=== PATIENT | female | born 1945 | race Caucasian/White ===

== ENCOUNTER 2016-09-11 11:53 | Day surgery (SDC) | payer MEDICARE ==
--- NOTE | ~2016-09-11 | EGD ---
EGD REPORT [facility] [address] [address] NAME: SUZANNE MORENO : [birth year] STATUS : REG [facility] [place] PAT#: [id number] AGE: 71 ADM/REG DATE : 09/11/16 MR#: [id number] REPORT SERV DATE: 09/11/16 DICTATED BY: KAREN PATEL DATE: 09/11/16 REPORT STATUS : Draft TRANSCRIBED BY: [email or web address] DATE: 09/11/16 Endoscopy Center Patient Name: Suzanne Moreno Date of : 1945 Attending MD: OMAR PATEL MD Procedure Date No Time: 09/11/2016 Procedure: Upper GI endoscopy Indications: Heartburn, Gastro-esophageal reflux disease Referring MD: ANUSHKA FULLER Medicines: See the Anesthesia note for documentation of the administered medications Complications: No immediate complications. Estimated blood loss: Minimal. Procedure: Pre-Anesthesia Assessment: - ASA Grade Assessment: III - A patient with severe systemic disease. - Prior to the procedure, a History and Physical was performed, and patient medications and allergies were reviewed. The patient's tolerance of previous anesthesia was also reviewed. The risks and benefits of the procedure and the sedation options and risks were discussed with the patient. All questions were answered, and informed consent was obtained. Prior Anticoagulants: The patient has taken no previous anticoagulant or antiplatelet agents. After reviewing the risks and benefits, the patient was deemed in satisfactory condition to undergo the procedure. After obtaining informed consent, the endoscope was passed under direct vision. Throughout the procedure, the patient's blood pressure, pulse, and oxygen saturations were monitored continuously. The GIF [id number] was introduced through the mouth, and advanced to the second part of duodenum. The upper GI endoscopy was accomplished without difficulty. The patient tolerated the procedure well. Findings: The examined duodenum was normal. Diffuse moderate inflammation characterized by erythema and granularity was found in the gastric antrum. Biopsies were taken with a cold forceps for histology. No other significant abnormalities were identified in a careful examination of the stomach. The cardia and gastric fundus were normal on retroflexion. Diffuse mild erythema was found at the gastroesophageal junction. This EGD REPORT [address] [address] NAME: SUZANNE MORENO : [birth year] STATUS : REG [facility] [place] PAT#: [id number] AGE: 71 ADM/REG DATE : 09/11/16 MR#: [id number] REPORT SERV DATE: 09/11/16 DICTATED BY: KAREN PATEL DATE: 09/11/16 REPORT STATUS : Draft TRANSCRIBED BY: [email or web address] DATE: 09/11/16 was biopsied with a cold forceps for histology. No other significant abnormalities were identified in a careful examination of the esophagus. Impression: - Normal examined duodenum. - Gastritis. Biopsied. - Erythema at the gastroesophageal junction. Biopsied. Recommendation: - Patient has a contact number available for emergencies. The signs and symptoms of potential delayed complications were discussed with the patient. Return to normal activities tomorrow. Written discharge instructions were provided to the patient. - Regular diet. - Discharge patient to home. - Continue present medications. - Await pathology results. Procedure Code(s): --- Professional --- 65643, Esophagogastroduodenoscopy, flexible, transoral; with biopsy, single or multiple Diagnosis Code(s): --- Professional --- K29.70, Gastritis, unspecified, without bleeding K22.9, Disease of esophagus, unspecified R12, Heartburn K21.9, Gastro-esophageal reflux disease without esophagitis CPT copyright 2013 [employer]. All rights reserved. The codes documented in this report are preliminary and upon automation tech review may be revised to meet current compliance requirements. OMAR PATEL MD 09/11/2016 1:41 PM This report has been signed electronically. Number of Addenda: 0 Note Initiated On: 09/11/2016 1:22 PM Scope Withdrawal Time 0 hours 0 minutes 0 seconds [address] [place] [address]
[~2016-09-11 11:53] MED LIST: ASAB PO; BIOTIN1000 MCG OR; CELEBREX2 PO; CINNAMON PO; DRAMAMINE25 MG PO; ESTRAVAN; ESTROBLEND PO; FISH OIL300 MG PO; FOLIC PO; GLUCCHONDR PO; HALF81 PO; HYOMAX-FT0.125 MG PO; LORTAB10 PO; LOTE40 PO; MTX2.5 PO; MULTIPLE VIT PO; MULTIVIT/MIN PO; P5 PO; PAIN MED PO; PLAQ200B PO; PR25 PO; PRILO PO; PRIN20 PO; PROTONIX PO; REG5 PO; REM15 PO; VITAMIN B-122500 MCG SL; VITAMIN D31000 UNIT PO; VITC500 PO; VITE PO; ZESTRIL20 MG PO; ZOCOR40 PO; ZOL50 PO
== END 2016-09-11 23:59 | disposition home or self-care (01) ==
LOC: DMU 11:53
PROVIDERS: Internal Medicine Gastroenterology
PROC: 0DB48ZX Excision of Esophagogastric Junction, Via Natural or Artificial Opening Endoscopic, Diagnostic (ICD-10-PCS; 2016-09-11)
PROC: 0DB68ZX Excision of Stomach, Via Natural or Artificial Opening Endoscopic, Diagnostic (ICD-10-PCS; principal; 2016-09-11 13:30)
DX: K29.00 Acute gastritis without bleeding (principal); K58.0 Irritable bowel syndrome with diarrhea; K21.0 Gastro-esophageal reflux disease with esophagitis; I10 Essential (primary) hypertension; E78.00 Pure hypercholesterolemia, unspecified; D64.9 Anemia, unspecified; M06.9 Rheumatoid arthritis, unspecified; Z79.899 Other long term (current) drug therapy; Z91.040 Latex allergy status; Z90.49 Acquired absence of other specified parts of digestive tract; Z90.710 Acquired absence of both cervix and uterus; Z98.51 Tubal ligation status; Z98.890 Other specified postprocedural states
CPT/HCPCS: 88305; 88342